=== PATIENT | female | born 1975 | race Hispanic/Latino ===

== ENCOUNTER 2018-08-03 02:15 | Emergency (ER) | payer MEDICARE | END 2018-08-03 04:14 | disposition left against medical advice (07) | LOC: EDH 02:15 | DX: H92.01 Otalgia, right ear (principal); Z53.21 Procedure and treatment not carried out due to patient leaving prior to being seen by health care provider ==

== ENCOUNTER 2019-05-03 13:11 | Emergency (ER) | payer MEDICAID, MEDICARE ==
[2019-05-03 13:32] LABS: BASOPHILS % (AUTO) 0.5 % (0.0-5.0); EOSINOPHILS % (AUTO) 2.1 % (0.0-8.0); HEMATOCRIT 37.5 % (36-48); LYMPHOCYTES % (AUTO) 23.5 % (21.0-51.0); MEAN CORPUSCULAR HEMOGLOBIN 26.5 pg (27.0-33.0); MEAN CORPUSCULAR HGB CONC 32.5 g/dL (32.0-36.0); MEAN CORPUSCULAR VOLUME 81.5 fL (79-99); NEUTROPHILS % (AUTO) 69.7 % (40.0-77.0); PLATELET COUNT (AUTO) 320 K/uL (130-400); RED CELL DISTRIBUTION WIDTH 12.5 % (11.0-15.5); WHITE BLOOD COUNT (AUTO) 8.8 K/uL (4.8-10.8)
[2019-05-03 13:43] LABS: INR 0.94 (0.85-1.15); PARTIAL THROMBOPLASTIN TIME 25.7 SEC (26.3-35.5); PROTHROMBIN TIME 9.9 SEC (9.6-11.6)
[2019-05-03 13:47] LABS: BILIRUBIN,TOTAL 0.2 mg/dL (0.2-1.0); CREATININE 0.8 mg/dL (0.5-1.5); POTASSIUM 4.2 mmol/L (3.5-5.1); TOTAL PROTEIN, SERUM 6.8 g/dL (6.0-8.3)
[2019-05-03 13:55] LABS: CREATINE KINASE, TOTAL 77 U/L (21-232); LIPASE 155 U/L (114-286); MYOGLOBIN 23 ng/mL (10-92); TROPONIN I < 0.04 ng/mL (0.00-0.06)
[2019-05-03] MEDS ORDERED: INSULIN HUMULIN R 100 UNIT/ML 3ML ONE (13:58)
[2019-05-03] MEDS ORDERED: SODIUM CHLORIDE 0.9% 1000ML 1,000 ML IV ONE (13:59)
[2019-05-03 14:11] LABS: APPEARANCE,URINE Clear (CLEAR); BILIRUBIN,URINE Negative (NEGATIVE); COLOR,URINE Yellow (YELLOW); GLUCOSE, URINE (UA) Negative (NEGATIVE); KETONES,URINE Negative (NEGATIVE); LEUKOCYTE ESTERASE ,URINE Trace (NEGATIVE); NITRATE,URINE Negative (NEGATIVE); OCCULT BLOOD,URINE Small (NEGATIVE); PROTEIN,URINE Negative (NEGATIVE); UROBILINOGEN,URINE 0.2 mg/dL (0.2-1.0)
[2019-05-03 14:13] LABS: HCG,QUAL RESULT NEGATIVE (NEGATIVE)
[2019-05-03 14:16] LABS: BACTERIA,URINE Rare /HPF (None Seen); RBC,URINE 0-1 /HPF (0-1); SQUAMOUS EPITHELIAL CELL,UR Rare /HPF (0-2); WBC,URINE 0-1 /HPF (0-1)
[2019-05-03 14:19] LABS: AMPHET/METH SCREEN,URINE NEGATIVE (NEGATIVE); BARBITURATE SCREEN, URINE NEGATIVE (NEGATIVE); BENZODIAZEPINES SCREEN,URINE NEGATIVE (NEGATIVE); CANNABINOID SCREEN,URINE NEGATIVE (NEGATIVE); COCAINE SCREEN,URINE NEGATIVE (NEGATIVE); OPIATE SCREEN,URINE NEGATIVE (NEGATIVE); PHENCYCLIDINE SCREEN,URINE NEGATIVE (NEGATIVE)
== END 2019-05-03 14:32 | disposition left against medical advice (07) ==
LOC: EDH 13:11
DX: E11.65 Type 2 diabetes mellitus with hyperglycemia (principal); M54.6 Pain in thoracic spine; E78.5 Hyperlipidemia, unspecified; M19.90 Unspecified osteoarthritis, unspecified site
CPT/HCPCS: 36415; 71045; 80053; 80305; 81001; 81025; 82150; 82550; 83690; 83874; 84484; 85025; 85610; 85730; 93005; 99285; J1815; J7030

== ENCOUNTER 2020-04-17 18:49 | Emergency (ER) | payer MEDICAID | END 2020-04-17 21:08 | disposition left against medical advice (07) | LOC: EDH 18:49 | DX: R10.30 Lower abdominal pain, unspecified (principal); M19.90 Unspecified osteoarthritis, unspecified site; E11.9 Type 2 diabetes mellitus without complications; I10 Essential (primary) hypertension; J45.909 Unspecified asthma, uncomplicated; E78.5 Hyperlipidemia, unspecified; Z90.49 Acquired absence of other specified parts of digestive tract; Z98.890 Other specified postprocedural states; Z53.21 Procedure and treatment not carried out due to patient leaving prior to being seen by health care provider ==

== ENCOUNTER 2020-06-04 11:41 | Emergency (ER) | payer MEDICAID ==
[2020-06-04 12:42] LABS: BASOPHILS % (AUTO) 0.5 % (0.0-5.0); EOSINOPHILS % (AUTO) 1.1 % (0.0-8.0); HEMATOCRIT 40.8 % (36-48); LYMPHOCYTES % (AUTO) 26.3 % (21.0-51.0); MEAN CORPUSCULAR HEMOGLOBIN 26.7 pg (27.0-33.0); MEAN CORPUSCULAR HGB CONC 32.6 g/dL (32.0-36.0); MEAN CORPUSCULAR VOLUME 81.8 fL (79-99); MONOCYTES % (AUTO) 4.8 % (3.0-13.0); NEUTROPHILS % (AUTO) 66.9 % (40.0-77.0); PLATELET COUNT (AUTO) 295 K/uL (130-400); RED BLOOD CELL COUNT(AUTO) 4.99 MIL/uL (4.00-5.50); RED CELL DISTRIBUTION WIDTH 12.8 % (11.0-15.5); WHITE BLOOD COUNT (AUTO) 7.9 K/uL (4.8-10.8)
[2020-06-04 12:47] LABS: APPEARANCE,URINE Turbid (CLEAR); BILIRUBIN,URINE Small (NEGATIVE); COLOR,URINE Red (YELLOW); GLUCOSE, URINE (UA) 250 mg/dL (NEGATIVE); KETONES,URINE Negative (NEGATIVE); LEUKOCYTE ESTERASE ,URINE Moderate (NEGATIVE); NITRATE,URINE Negative (NEGATIVE); OCCULT BLOOD,URINE Large (NEGATIVE); PH,URINE 7.5 (5.0-8.0); PROTEIN,URINE POS 2+ mg/dL (NEGATIVE)
[2020-06-04 12:50] LABS: CREATININE 0.5 mg/dL (0.5-1.5); POTASSIUM 4.3 mmol/L (3.5-5.1)
[2020-06-04 12:55] LABS: ALBUMIN 3.2 g/dL (3.5-5.0); BILIRUBIN,TOTAL 0.5 mg/dL (0.2-1.0); TOTAL PROTEIN, SERUM 7.2 g/dL (6.0-8.3)
[2020-06-04 12:59] LABS: HCG,QUAL RESULT NEGATIVE (NEGATIVE)
[2020-06-04 13:05] LABS: INR 1.01 (0.85-1.15)
[2020-06-04 13:07] LABS: PARTIAL THROMBOPLASTIN TIME 25.4 SEC (26.3-35.5)
[2020-06-04 13:27] LABS: BACTERIA,URINE Moderate /HPF (None Seen); RBC,URINE TNTC /HPF (0-1)
[2020-06-04] MEDS ORDERED: LIDOCAINE HCL-MPF 1% 2ML VIAL ONE (14:09)
[2020-06-04] MEDS ORDERED: CEFTRIAXONE SODIUM 1 GM ONE (14:09)
== END 2020-06-04 14:34 | disposition home or self-care (01) ==
LOC: EDH 11:41
DX: N93.9 Abnormal uterine and vaginal bleeding, unspecified (principal); N39.0 Urinary tract infection, site not specified; M19.90 Unspecified osteoarthritis, unspecified site; J45.909 Unspecified asthma, uncomplicated; E11.9 Type 2 diabetes mellitus without complications; E78.5 Hyperlipidemia, unspecified; I10 Essential (primary) hypertension
CPT/HCPCS: 36415; 80053; 81001; 81025; 85025; 85610; 85730; 87088; 96372; 99283; J0696; J3490

== ENCOUNTER 2020-11-27 22:59 | Emergency (ER) | payer MEDICAID ==
[~2020-11-27] VITALS: Ht 152.4 cm; Wt 90.7 kg
[2020-11-28] LABS: BASOPHILS % (AUTO) 0.3 % (0.0-5.0); EOSINOPHILS % (AUTO) 0.3 % (0.0-8.0); HEMATOCRIT 40.2 % (36-48); LYMPHOCYTES % (AUTO) 11.8 % (21.0-51.0); MEAN CORPUSCULAR HEMOGLOBIN 26.2 pg (27.0-33.0); MEAN CORPUSCULAR HGB CONC 32.6 g/dL (32.0-36.0); MEAN CORPUSCULAR VOLUME 80.4 fL (79-99); MONOCYTES % (AUTO) 4.5 % (3.0-13.0); NEUTROPHILS % (AUTO) 82.8 % (40.0-77.0); PLATELET COUNT (AUTO) 417 K/uL (130-400); RED CELL DISTRIBUTION WIDTH 12.8 % (11.0-15.5); WHITE BLOOD COUNT (AUTO) 14.5 K/uL (4.8-10.8)
[2020-11-28 00:01] LABS: APPEARANCE,URINE Clear (CLEAR); BILIRUBIN,URINE Negative (NEGATIVE); COLOR,URINE Yellow (YELLOW); GLUCOSE, URINE (UA) >=1000 mg/dL (NEGATIVE); KETONES,URINE Negative (NEGATIVE); LEUKOCYTE ESTERASE ,URINE Negative (NEGATIVE); NITRATE,URINE Negative (NEGATIVE); OCCULT BLOOD,URINE Negative (NEGATIVE); PH,URINE 5.5 (5.0-8.0); PROTEIN,URINE 300 mg/dL (NEGATIVE)
[2020-11-28 00:10] LABS: CREATININE 0.6 mg/dL (0.5-1.5); POTASSIUM 3.8 mmol/L (3.5-5.1)
[2020-11-28 00:21] VITALS: BP 130/72
[2020-11-28 00:22] LABS: ALBUMIN 3.3 g/dL (3.5-5.0); BILIRUBIN,TOTAL 0.3 mg/dL (0.2-1.0); TOTAL PROTEIN, SERUM 7.6 g/dL (6.0-8.3)
[2020-11-28] MEDS ORDERED: ONDA4TAB10 PO (00:46)
[2020-11-28] MEDS ORDERED: DICY20TA2 PO (00:46)
[2020-11-28] MEDS ORDERED: METO-296 PO (00:46)
[2020-11-28] MEDS ORDERED: CYCLOBENZAPRINE HCL 10 MG TABLET ONE (00:54)
[2020-11-28] MEDS ORDERED: DICYCLOMINE HCL 20 MG TAB ONE (00:54)
[2020-11-28] MEDS ORDERED: KETOROLAC 30MG VIAL (30MG/ML) ONE (00:54)
[2020-11-28] MEDS ORDERED: KETOROLAC 30MG VIAL (30MG/ML) IV ONE (01:00)
[2020-11-28] MEDS ORDERED: DICYCLOMINE HCL 20 MG TAB PO ONE (01:00)
[2020-11-28] MEDS ORDERED: CYCLOBENZAPRINE HCL 10 MG TABLET PO ONE (01:00)
[2020-11-28 01:02] VITALS: BP 128/75
[2020-11-28 01:03] LABS: BACTERIA,URINE Rare /HPF (None Seen); RBC,URINE None Seen /HPF (0-1); WBC,URINE None Seen /HPF (0-1)
[2020-11-28 01:04] LABS: YEAST,URINE BUDDING Moderate /HPF (None Seen)
== END 2020-11-28 01:12 | disposition home or self-care (01) ==
LOC: EDH 22:59
DX: R10.30 Lower abdominal pain, unspecified (principal); R30.0 Dysuria; M54.9 Dorsalgia, unspecified; R11.0 Nausea; E11.9 Type 2 diabetes mellitus without complications; I10 Essential (primary) hypertension; J45.909 Unspecified asthma, uncomplicated; M19.90 Unspecified osteoarthritis, unspecified site; Z79.1 Long term (current) use of non-steroidal anti-inflammatories (NSAID); Z79.899 Other long term (current) drug therapy
CPT/HCPCS: 36415; 80053; 81001; 84702; 85025; 86900; 86901; 96372; J1885

== ENCOUNTER 2021-10-23 22:46 | Emergency (ER) | payer MEDICAID ==
[~2021-10-23] VITALS: Ht 152.4 cm; Wt 92.1 kg
[~2021-10-23 22:46] MED LIST: ACYC-138 PO; ACYC30OI2 TP; DICY20TA2 PO; METO-296 PO; ONDA4TAB10 PO
[2021-10-23 22:48] VITALS: BP 155/72
[2021-10-23 23:31] LABS: BASOPHILS % (AUTO) 0.6 % (0.0-5.0); EOSINOPHILS % (AUTO) 1.8 % (0.0-8.0); HEMATOCRIT 39.8 % (36-48); LYMPHOCYTES % (AUTO) 32.2 % (21.0-51.0); MEAN CORPUSCULAR HEMOGLOBIN 27.2 pg (27.0-33.0); MEAN CORPUSCULAR HGB CONC 32.9 g/dL (32.0-36.0); MEAN CORPUSCULAR VOLUME 82.6 fL (79-99); MONOCYTES % (AUTO) 5.6 % (3.0-13.0); NEUTROPHILS % (AUTO) 59.4 % (40.0-77.0); PLATELET COUNT (AUTO) 358 K/uL (130-400); RED BLOOD CELL COUNT(AUTO) 4.82 MIL/uL (4.00-5.50); RED CELL DISTRIBUTION WIDTH 12.4 % (11.0-15.5); WHITE BLOOD COUNT (AUTO) 8.2 K/uL (4.8-10.8)
[2021-10-23 23:46] LABS: CREATININE 0.8 mg/dL (0.5-1.5); POTASSIUM 3.8 mmol/L (3.5-5.1)
[2021-10-23 23:52] LABS: APPEARANCE,URINE SL CLOUDY (CLEAR); BILIRUBIN,URINE NEGATIVE (NEGATIVE); COLOR,URINE RED (YELLOW); GLUCOSE, URINE (UA) >=1000 mg/dL (NEGATIVE); KETONES,URINE NEGATIVE (NEGATIVE); LEUKOCYTE ESTERASE ,URINE NEGATIVE (NEGATIVE); NITRATE,URINE NEGATIVE (NEGATIVE); OCCULT BLOOD,URINE LARGE (NEGATIVE); PROTEIN,URINE TRACE mg/dL (NEGATIVE); UROBILINOGEN,URINE 0.2 mg/dL (0.2-1.0)
[2021-10-24 00:11] LABS: BACTERIA,URINE None Seen /HPF (None Seen); RBC,URINE TNTC /HPF (0-1); WBC,URINE None Seen /HPF (0-1)
[2021-10-24] MEDS ORDERED: METOCLOPRAMIDE 10 MG TABLET PO ONE (00:30)
[2021-10-24] MEDS ORDERED: POLY119P2 PO (01:00)
[2021-10-24] MEDS ORDERED: MAGNESIUM CITRATE 296 ML SOLUTION PO ONE (01:00)
== END 2021-10-24 01:06 | disposition home or self-care (01) ==
LOC: EDH 22:46
DX: R10.12 Left upper quadrant pain (principal); E11.65 Type 2 diabetes mellitus with hyperglycemia; K59.00 Constipation, unspecified; J45.909 Unspecified asthma, uncomplicated; Z98.890 Other specified postprocedural states; Z79.899 Other long term (current) drug therapy
CPT/HCPCS: 36415; 74176; 80053; 81001; 81025; 83690; 85025

== ENCOUNTER 2023-03-03 06:54 | Day surgery (SDC) | payer MEDICAID ==
[2023-02-27 08:28] VITALS: BP 178/76; PULSE 82; RESP 20
[2023-02-27 08:59] LABS: CREATININE 0.6 mg/dL (0.5-1.5); POTASSIUM 4.1 mmol/L (3.5-5.1)
[2023-03-03] VITALS (17 sets, daily range): BP systolic 131–163; BP diastolic 62–90; PULSE 65–86; RESP 16–21
[~2023-03-03] VITALS: Ht 156.2 cm; Wt 105.2 kg
[~2023-03-03 06:54] MED LIST changes: -ACYC-138 PO; -ACYC30OI2 TP; +ALBU18HF7 IH; -DICY20TA2 PO; +DOCU100T PO; +ESCI20TA38 PO; +FENO145T26 PO; +FURO40TA5 PO; +GLIP10TA9 PO; +INSU100I3 SQ; +INSU100V12 SQ; +INSU100V54 SQ; +METF-446 PO; -METO-296 PO; +NAPR-1023 PO; +ONDA-104 PO; -ONDA4TAB10 PO; +PIOG30TA70 PO; +PRED20TA3 PO; +PREG150C47 PO; +ZOLP5TAB8 PO
[2023-03-03] MEDS: CEFAZOLIN SODIUM 2 GM VIAL ONE ×2 (07:56→10:10)
[2023-03-03] MEDS ORDERED: 0.9%NACL 1000ML 1,000 ML IV ONE (07:57)
[2023-03-03] MEDS ORDERED: HYDROMORPHONE 1 MG INJ ONE (09:39)
[2023-03-03] MEDS ORDERED: FAMOTIDINE 20MG VIAL IV ONE (09:40)
[2023-03-03] MEDS ORDERED: BUPIVACAINE/PF 0.5% 30ML VIAL ONE (09:41)
[2023-03-03] MEDS ORDERED: GLYCOPYRROLATE 1 MG/5 ML SYRINGE ONE (09:45)
[2023-03-03] MEDS ORDERED: ROCURONIUM 10MG/1ML SYR 10 MG/ML ML ONE (09:45)
[2023-03-03] MEDS ORDERED: FENTANYL CITRATE PF 50 MCG/1 ML 2ML VIAL ONE (09:45)
[2023-03-03] MEDS ORDERED: PROPOFOL 10 MG/ML 20ML VIAL IV ONE (09:46)
[2023-03-03] MEDS ORDERED: MIDAZOLAM HCL 1 MG/ML 2ML VIAL ONE (09:55)
[2023-03-03] MEDS ORDERED: NEOSTIGMINE 5MG/5ML SYR IV ONE (10:48)
[2023-03-03] MEDS ORDERED: ROPIVACAINE 0.5% 5MG/ML 30ML ONE (10:50)
[2023-03-03] MEDS ORDERED: ONDANSETRON 4MG INJ ONE ×2 (11:44→12:10)
[2023-03-03] MEDS ORDERED: METOCLOPRAMIDE 10 MG/2 ML VIAL ONE (12:37)
== END 2023-03-03 13:10 | disposition home or self-care (01) ==
LOC: DAH 06:54
PROVIDERS: ATTEND Surgery
DX: K43.2 Incisional hernia without obstruction or gangrene (principal); J45.909 Unspecified asthma, uncomplicated; E11.9 Type 2 diabetes mellitus without complications; K21.9 Gastro-esophageal reflux disease without esophagitis; Z79.899 Other long term (current) drug therapy; Z79.01 Long term (current) use of anticoagulants; Z98.890 Other specified postprocedural states; Z98.891 History of uterine scar from previous surgery; Z98.51 Tubal ligation status; Z79.4 Long term (current) use of insulin
CPT/HCPCS: 80048; 84703; 36415; 49593; 64488; 82948 ×3; A6260; A4663; A4452; J3010; J1170; J3490 ×2; J2710; J7030; J2250; J2405 ×2; J0665; J2765; J2795; J0690; C1781; A4930; A4215; A4223; A4222; A4221; A4600; S0028; J2704